=== PATIENT | female | born 1990 | race Two or more races ===

== ENCOUNTER 2020-05-01 11:43 | Inpatient (IN) | payer OTHER ==
[~2020-05-01] VITALS: Ht 170.2 cm; Wt 97.5 kg
[2020-05-01] MEDS ORDERED: SYNTHROID175 MCG PO (12:52)
[2020-05-01] MEDS ORDERED: PRENATAL TABLE1 EAC1 PO (12:53)
[2020-05-01] MEDS ORDERED: PRENATAL TABLE1 EAC3 PO (15:44)
== END 2020-05-07 13:46 | disposition home or self-care (01) | DRG 807 ==
LOC: LDR 11:43 → OB/GYN 11:43
PROVIDERS: ADMIT Obstetrics & Gynecology; ATTEND Obstetrics & Gynecology
PROC: 4A1HXFZ Monitoring of Products of Conception, Cardiac Rhythm, External Approach (ICD-10-PCS; 2020-05-01)
PROC: 10E0XZZ Delivery of Products of Conception, External Approach (ICD-10-PCS; principal; 2020-05-05)
PROC: 0HQ9XZZ Repair Perineum Skin, External Approach (ICD-10-PCS; 2020-05-05)
PROC: 10907ZC Drainage of Amniotic Fluid, Therapeutic from Products of Conception, Via Natural or Artificial Opening (ICD-10-PCS; 2020-05-05)
DX: O13.4 Gestational [pregnancy-induced] hypertension without significant proteinuria, complicating childbirth (principal); Z37.0 Single live birth; O70.0 First degree perineal laceration during delivery; Z3A.38 38 weeks gestation of pregnancy; Z20.828 Contact with and (suspected) exposure to other viral communicable diseases